=== PATIENT | male | born 1975 | race Caucasian/White ===

== ENCOUNTER → 2018-05-13 14:10 | Outpatient (REF) | payer MEDICAID, SELFPAY ==
[2018-05-13 19:14] LABS: Anion Gap 16.3 mEq/L (5-15); Blood Urea Nitrogen 7 mg/dL (7-18); Calcium 8.5 mg/dL (8.5-10.1); Carbon Dioxide 24 mmol/L (21.0-32.0); Chloride 108 mmol/L (98-107); Creatinine,Serum 1.13 mg/dL (0.70-1.30); Estimated Glomerular Filt Rate 71 ml/min (>60); Free T4 (Free Thyroxine) 0.82 ng/dl (0.76-1.46); GFR (African American) 86 ML/MIN (>60); Glucose 102 mg/dL (74-106); Potassium 4.3 mmoL/L (3.5-5.1); Sodium 144 mmol/L (136-145); Thyroid Stimulating Hormone 1.29 uIU/ml (0.358-3.740)
== END ==
LOC: LAB 14:10
PROVIDERS: Visit Provider Emergency Medicine
DX: I10 Essential (primary) hypertension (principal)
CPT/HCPCS: 80048; 84439; 84443

== ENCOUNTER → 2019-08-12 17:40 | Outpatient (CLI) | payer MEDICAID, SELFPAY ==
[2019-08-12 18:39] LABS: Basophils % 0.5 % (0.1-2.0); Eosinophils # 0.1 K/mm3 (0.0-0.4); Hematocrit 42.9 % (42.0-52.0); Hemoglobin 13.5 g/dL (14.1-18.0); Lymphocytes # 2.2 K/mm3 (0.7-4.5); Lymphocytes % 30.2 % (10-50); Mean Corpuscular HGB Conc 31.5 g/dL (31.8-35.4); Mean Corpuscular Hemoglobin 27.7 pg (27.0-31.2); Mean Corpuscular Volume 87.9 fl (80-94); Mean Platelet Volume 8.5 fl (7.4-10.4); Monocytes # 0.5 K/mm3 (0.1-1.0); Monocytes % 7.1 % (1.7-9.3); Neutrophils # 4.4 K/mm3 (1.8-7.8); Neutrophils % 61.2 % (37.0-80.0); Platelet Count 318 K/mm3 (142-424); Red Blood Count 4.88 M/mm3 (4.60-6.20); Red Cell Distribution Width 15.3 % (11.5-17.5); White Blood Count 7.2 K/mm3 (4.8-10.8)
[2019-08-12 20:28] LABS: Alanine Aminotransferase 51 U/L (12-78); Albumin Level 4.1 gm/dL (3.4-5.0); Alkaline Phosphatase 92 U/L (46-116); Aspartate Amino Transferase 53 U/L (15-37); Bilirubin,Total 0.4 mg/dL (0.2-1.0); Blood Urea Nitrogen 11 mg/dL (7-18); Calcium 8.5 mg/dL (8.5-10.1); Carbon Dioxide 22 mmol/L (21.0-32.0); Chloride 104 mmol/L (98-107); Creatinine,Serum 1.18 mg/dL (0.70-1.30); Estimated Glomerular Filt Rate 67 ml/min (>60); GFR (African American) 81 ML/MIN (>60); Globulin 4.2 gm/dl (1.3-3.2); Glucose 107 mg/dL (74-106); Sodium 140 mmol/L (136-145); Total Protein,Serum 8.3 gm/dL (6.4-8.2)
== END ==
PROVIDERS: Visit Provider Emergency Medicine
DX: I10 Essential (primary) hypertension (principal)
CPT/HCPCS: 80053; 85025

== ENCOUNTER → 2019-08-22 08:48 | Outpatient (CLI) | payer MEDICAID, SELFPAY ==
--- NOTE | 2019-08-22 08:50 | CA_ITS ---
APPROVED REPORT Left Lower Extremity Venous Study for DVT. Subcontract Administrator: Yin Huitron RVT Indications Lower Extremity Pain: Lower Extremity Edema: Left Current Smoker History of Smoking pain and swelling, HX DVT WITH PE LAST JUL. Risk Factors Prior Phlebitis/DVT Obesity Prior Pulmonary Embolism Current Smoker Past History DVT : Date : JUL 2018 Pulmonary Embolism Date : JUL 2018 Medications Coumadin PT ON XARELTO Vein Imaging CFV (L): compressive, spontaneous, phasic, augmentation FEM (L): compressive, spontaneous, phasic, augmentation POP (L): compressive, spontaneous, phasic, augmentation PTV (L): Compressible GSV (L): Compressible Peroneals (L):Compressible GAS (L): Compressible Findings Study suggests no evidence of DVT left lower extremity. Study suggests no evidence of SVT left lower extremity. Conclusion No evidence of DVT or superficial thrombophlebitis in the veins scanned of the left lower extremity. Electronically signed by : Ji Moore MD 08/22/2019 17:28:50
== END ==
PROVIDERS: PCP Emergency Medicine; Visit Provider Emergency Medicine
DX: M79.662 Pain in left lower leg (principal); M79.89 Other specified soft tissue disorders
CPT/HCPCS: 93971

== ENCOUNTER → 2019-09-15 14:11 | Outpatient (CLI) | payer MEDICAID, SELFPAY ==
[2019-09-15 20:03] LABS: Amphetamine/Metha Screen,Urine Negative ng/mL (<1000); Barbiturates Screen,Urine Negative ng/mL (<200); Benzodiazepines Screen,Urine Negative ng/mL (<200); Cannabinoid Screen,Urine Negative ng/mL (<50); Cocaine Screen,Urine Positive ng/mL (<300); Methadone Screen,Urine Negative ng/mL (<300); Opiate Screen,Urine Positive ng/mL (<300); Phencyclidine Screen,Urine Negative ng/mL (<25)
[2019-09-21 11:08] LABS: Benzoylecgonine (GC/MS) 3105 ng/mL (Cutoff=150); Cocaine + Metabolite Positive (.)
== END ==
PROVIDERS: Visit Provider Emergency Medicine
DX: G25.81 Restless legs syndrome (principal); Z79.899 Other long term (current) drug therapy
CPT/HCPCS: 80305; 80353

== ENCOUNTER → 2019-10-20 10:13 | Outpatient (POV) | payer MEDICAID, SELFPAY ==
[2019-10-20 10:40] VITALS: BP 143/86; PULSE 75; RESP 18; O2SAT 99; BMI 36.7
--- NOTE | 2019-10-20 12:59 | HMH.PMCON ---
Assessment and Plan (1) Back pain Current visit: Yes Status: Chronic Category: Medical Code(s): M54.9 - Dorsalgia, unspecified (2) CRPS (complex regional pain syndrome type I) Current visit: Yes Status: Chronic Category: Medical Code(s): G90.50 - Complex regional pain syndrome I, unspecified - Assessment and plan all Dx Assessment and Plan for all problems:: We will send the patient for a psychological evaluation for neurostimulator and also started on Lyrica 75 mg 1 p.o. twice daily. I will follow-up with the patient in 1 month reassess his symptoms at that time he is been instructed to call the office if he has any issues prior to his next appointment. Patient is on a anticoagulation therapy. I did discuss that with he would have to come off of this prior to any trial. Dr. Jaimes has reviewed this note and agrees with this plan of care. This note was dictated using voice recognition software and may contain errors or omissions HPI - Data of Consult Consult date: 10/20/19 Requesting Physician: Jany Mcdonnell APRN Primary Care Provider: Antonino Handy MD - Consult Narrative Reason for consult: Leg pain History of present illness: Mr. Richardson is a 44 year old male who presents today to discuss his left lower extremity pain. Patient had a DVT last year and since then has had some extreme pain in his left lower extremity. Patient also has back pain. He was being seen in [place] for injections which gave him temporary relief however he is not had any long-term low back pain relief. Patient's left leg is burning and tingling at all times. He has swelling, color changes, temperature changes. Patient and I discussed options. Patient has not been on any Lyrica. We discussed starting Lyrica and potentially doing a neurostimulator. He is interested in pursuing this. Patient would like to take care of low his low back pain and his leg pain. Patient is going to go for psychological evaluation to determine if he is a candidate for this therapy. He rates his pain today a 6 out of 10. CC: Jany Mcdonnell APRN [facility] History I have reviewed the patient's past medical history: Yes Medical History: Reports:: Anxiety, Deep Vein Thrombosis, Gastroesophageal Reflux Disease(GERD), Hypertension, Pulmonary Embolism Denies:: Diabetes Mellitus Type 1, Diabetes Mellitus Type 2 *Have you ever received a pneumonia vaccine?: Yes *Have you received a flu vaccine this season?: Yes Laterality Cases: Bilateral: Arthroscopy Shoulder, Tonsillectomy Other Surgeries: Yes: Other Amputation: No Fractures: Yes - *Social History Smoking Status: Current every day smoker Tobacco Type: cigarettes # Packs/Day (cigarettes): 1 Alcohol Intake: current Alcohol Intake Frequency:: a few times a week Substance Use Type: former substance user *Occupational Status:: other Housing: house Household Members: other *Travel in the last 8 weeks: None - Psychiatric History Pschychiatric History:: Reports:: Anxiety Family Hx:: Asthma, Heart Attack, Cancer Review of Systems - Review of Systems ROS General: no recent weight change, no fever, no sleep disturbances Respiratory: no cough, no shortness of air, no recurring pulmonary infections Cardiovascular/Peripheral Vascular: No chest pain, No palpitations, no edema, no shortness of breath. Gastrointestinal: no new onset incontinence, normal bowel movements reported Genitourinary: no new onset incontinence Musculoskeletal: Left leg pain, low back pain Psychiatric: normal mood/ affect Neurological: [denies new onset weakness in extremities], [denies new onset balance issues] Meds Home Medications Medication Instructions Recorded Confirmed Type hydroxyzine pamoate 50 mg capsule 50 mg PO BID PRN #180 cap 08/12/19 09/15/19 Rx tizanidine 4 mg capsule 4 mg PO TID PRN #90 cap 08/12/19 09/15/19 Rx Amitriptyline HCl 100 mg PO QHS 09/01/19 09/15/19 History Amlodipine Besylate [A
== END ==
PROVIDERS: PCP Emergency Medicine; Visit Provider Clinical Nurse Specialist Family Health
DX: M54.9 Dorsalgia, unspecified (principal); G90.50 Complex regional pain syndrome I, unspecified
CPT/HCPCS: 99212

== ENCOUNTER 2019-11-04 09:00 | Outpatient (RCR) | payer MEDICAID, SELFPAY ==
--- NOTE | 2019-09-24 08:28 | HMH.PTOPWND ---
Rehab Outpt Wound Evaluation Rehab OP Wound Evaluation Start: 09/24/19 08:06 Freq: Status: Active Protocol: Document 09/24/19 08:22 LEO (Rec: 09/24/19 08:28 PHORNE [id number]) Electronically Signed By David Baxter, PT 09/24/19 08:22 Subjective/History History History Pt is 44 yowm who presents with persistent left LE edema x ~ 1 yr S/P large DVT of the left leg with complication of PE. He reports his leg has swollen ever since with loss of the hair on his leg and associated pain. He reports edema is worse with prolonged dependent positioning and does decrease with propping. He has hx of anxiety, GERD, and RLS. Subjective Subjective Currently 3+ pitting edema, but no c/o pain. Pain is 10/10 at worst. Lymphedema Eval Classification of Lymphedema Secondary Lymphedema Yes Stemmer's sign Stemmer's Sign no Stage of Lymphedema Lymphedema stages Stage I (Pitting edema, reduces w/ elevation, no fibrosis) Skin Changes Dry Skin Yes Taut, Shiny Skin Yes Redness Yes Discoloration of Skin Yes Other Changes Yes Pain Scale Pain Scale (0-10) 10 Affected Extremities Areas Affected by Lymphedema/Edema Left Lower Extremity Manual Lymphatic Drainage Treatment Area MLD Treatment Area Left Lower Extremity Wound Problems/Impairments Impairments Problems/Impairmments Palpation Tenderness,Impaired Walking,Impaired Standing, Impaired Recreational Activities,Increased Edema, Lymphedema Present,Subjective C/O Pain,Impaired Self Care/ Self Management Prognosis Rehab Potential Good Clinical Impression Consistent with Diagnosis Yes Short Term Goals Number of Weeks 4 Decreased Palpation Tenderness Yes: to min Decrease Edema Yes Decrease Subjective C/O Pain Yes: 7/10 at worst Patient to be Ind w/ Donning/[place] Yes Compression Garments Patient to Understand Lymphedema Yes Treatment and Exercises Decrease Girth Measurments by (cm) Yes: by 5 cm Group Home Goals Number of Weeks
== END 2019-11-04 09:05 | disposition home or self-care (01) ==
LOC: PT 09:00
PROVIDERS: Visit Provider Emergency Medicine
DX: M79.89 Other specified soft tissue disorders (principal); R60.0 Localized edema; M79.605 Pain in left leg
CPT/HCPCS: 97140; 97162; 97760

== ENCOUNTER → 2019-11-13 14:01 | Outpatient (CLI) | payer MEDICAID, SELFPAY ==
--- NOTE | 2019-11-13 14:01 | US_ITS ---
PROCEDURE: US BREAST LT COMPLETE CLINICAL INDICATION: tender mass Palpable abnormality in the left breast the nipple COMPARISON: CT ANGIO ABDOMEN PELVIS from 09/01/2019 FINDINGS: Heterogeneous echogenicity noted in the retroareolar region consistent with gynecomastia. No suspicious solid lesions are evident. There is a small axillary lymph node. IMPRESSION: Gynecomastia left breast. BI-RADS category 2 benign. Recommend follow up as clinically warranted Dictated by: Ji Moore MD 11/14/2019 14:44 Electronically signed by Ji Moore MD in [place] 11/14/2019 14:44
== END ==
PROVIDERS: PCP Emergency Medicine; Visit Provider Emergency Medicine
DX: N63.42 Unspecified lump in left breast, subareolar (principal)
CPT/HCPCS: 76641

== ENCOUNTER → 2019-11-17 15:07 | Outpatient (POV) | payer MEDICAID, SELFPAY ==
[2019-11-17 15:58] VITALS: BP 123/96; PULSE 100; RESP 18; O2SAT 99; BMI 37.3
--- NOTE | 2019-11-18 08:54 | P.CONS_ITS ---
[facility] Pain Management SOAP Note Subjective:: Patient is a pleasant 44-year-old white male who presents today for follow-up. Patient was seen at his last appointment and it was determined that he was going to move forward with a neurostimulator. Patient was unable to make a psychological evaluation on the of this month however he is moved to the of this month. Patient has since started on Suboxone. Patient states that he would like to go back on his gabapentin. I discussed with him that he would have to discuss this with his Suboxone clinic and we would have to have written permission prior to him being prescribed this. Patient states he understands most of his pain is in his back and lower legs. He has pain secondary to a DVT. Patient has had injections along with nerve blocks. Patient has had no long- term relief. He has swelling color changes and temperature changes to his left lower extremity. ROS General: no recent weight change, no fever, no sleep disturbances Respiratory: no cough, no shortness of air, no recurring pulmonary infections Cardiovascular/Peripheral Vascular: No chest pain, No palpitations, no edema, no shortness of breath. Gastrointestinal: no new onset incontinence, normal bowel movements reported Genitourinary: no new onset incontinence Musculoskeletal: Back pain, leg pain Psychiatric: normal mood/ affect Neurological: [denies new onset weakness in extremities], [denies new onset balance issues] Objective:: Physical Exam General: Alert and oriented x3, no acute distress, pleasant and cooperative, [on room air] Lungs: Resps E/U, Symmetrical chest expansion, Eyes: PERRL Musculoskeletal: Flexion and extension of lumbar spine somewhat guarded secondary to pain, deep tendon reflexes normal, strength in upper and lower extremities [5/5], [abnormal gait noted] Neurological: speech clear, histology teacher equal, no gross sensory deficits Assessment:: CRPS type I, back pain Plan:: We will see the patient after his psychological evaluation and move forward with a neurostimulator. If patient is allowed to be on gabapentin we will prescribe gabapentin 600 mg [address] p[address] Jaimes has reviewed this note and agrees with this plan of care. This note was dictated using voice recognition software and may contain errors or omissions [facility] History I have reviewed the patient's past medical history: Yes Medical History: Reports:: Anxiety, Deep Vein Thrombosis, Gastroesophageal Reflux Disease(GERD), Hypertension, Pulmonary Embolism Denies:: Diabetes Mellitus Type 1, Diabetes Mellitus Type 2 *Have you ever received a pneumonia vaccine?: Yes *Have you received a flu vaccine this season?: Yes Laterality Cases: Bilateral: Arthroscopy Shoulder, Tonsillectomy Other Surgeries: Yes: Other Amputation: No Fractures: Yes - *Social History Smoking Status: Current every day smoker Tobacco Type: cigarettes # Packs/Day (cigarettes): 1 Alcohol Intake: current Alcohol Intake Frequency:: a few times a week Substance Use Type: former substance user *Occupational Status:: other Housing: house Household Members: other *Travel in the last 8 weeks: None - Psychiatric History Pschychiatric History:: Reports:: Anxiety Family Hx:: Asthma, Heart Attack, Cancer
== END ==
PROVIDERS: PCP Emergency Medicine; Visit Provider Clinical Nurse Specialist Family Health
DX: G90.50 Complex regional pain syndrome I, unspecified (principal); M54.9 Dorsalgia, unspecified; F41.9 Anxiety disorder, unspecified; I82.509 Chronic embolism and thrombosis of unspecified deep veins of unspecified lower extremity; K21.9 Gastro-esophageal reflux disease without esophagitis; I10 Essential (primary) hypertension; I26.99 Other pulmonary embolism without acute cor pulmonale; Z72.0 Tobacco use
CPT/HCPCS: 99212

== ENCOUNTER → 2019-12-31 19:50 | Outpatient (CLI) | payer MEDICAID, SELFPAY | PROVIDERS: PCP Emergency Medicine; Visit Provider Emergency Medicine | DX: G47.33 Obstructive sleep apnea (adult) (pediatric) (principal); I10 Essential (primary) hypertension; R40.0 Somnolence; R06.83 Snoring | CPT/HCPCS: 95810 ==

== ENCOUNTER 2020-07-14 08:28 | Outpatient (RCR) | payer MEDICAID, SELFPAY ==
--- NOTE | 2020-07-14 10:15 | HMH.PTOPEV ---
PT Outpatient Evaluation Rehab PT Outpatient Evaluation Start: 07/14/20 09:58 Freq: Status: Active Protocol: Document 07/14/20 09:58 SCOTTHARRIETT (Rec: 07/14/20 10:14 SCOTTLIONELANOOP [id number]) Electronically Signed By Tyler Kemp, PT 07/14/20 09:58 Outpatient Therapy Subjective History Subjective History Patient is a 45 year old male presenting to outpatient PT with reports of chronic LBP with intermittent RLE radicular symptoms. Symptom onset is insidious starting approx 20 years ago that has progressively gotten worse over the past few months. Pt has received multiple injections that provide approx 3 months relief per patient report. Multiple previous episodes of PT that have provided some relief. Comorbidities include hx of B SLAP tear/surgery, R knee pain , HTN and hx of pulmonary embolism. Chief Complaint Pain,Stiff,Paresthesia Symptom Type Ache,Throb,Sharp,Dull,Stabbing ,Burning Symptoms Relieved By Rest/Positioning,Prescription Meds Prior Functional Limitations Lifting,Sleeping,Walking, Bending/Stooping Current Functional Limitations Lifting,Sleeping,Walking, Bending/Stooping Symptom Description Constant but Variable Level of pain today (0-10) 5 Pain scale - at its best (0-10) 2 Pain scale - at its worst (0-10) 10 Lumbopelvic Eval Posture Thoracic Spine Posture Standing Position Neutral Lumbar Spine Posture Standing Position Neutral Assistive device Assistive Devices None / NA Palapation tenderness bilateral lumbar spinal tenderness Yes: L2-S1 3/4 paraspinal tenderness Yes: buttock tenderness Yes: R 3/4 Accessory Movement L2 bilateral L3 bilateral L4 bilateral L5 bilateral S1 bilateral Range of Motion Lumbar Spine Active Flexion Range of 80 inc radic Motion (degrees) Lumbar Spine Active Extension Range of 22 Motion (degrees) Left Lumbar Spine Lateral Flexion Active 26 inc radic Range of Motion (degrees) Right Lumbar Spine Lateral Flexion 22 Activ
== END 2020-07-14 09:25 | disposition home or self-care (01) ==
LOC: PT 08:28
PROVIDERS: Visit Provider Physician Assistant
DX: M54.9 Dorsalgia, unspecified (principal)
CPT/HCPCS: 97163